=== PATIENT | male | born 1975 | race Two or more races ===

== ENCOUNTER 2017-04-24 13:25 | Emergency (ER) | payer MEDICAID ==
[~2017-04-24] VITALS: Ht 167.6 cm; Wt 60.3 kg
[2017-04-24 14:34] VITALS: BP 114/79
[2017-04-24] MEDS ORDERED: NEOMYCIN-BACITRACIN-POLYM UNITDOSE PKG TOP OINT TOP ONE (15:00)
== END 2017-04-24 15:19 | disposition home or self-care (01) ==
LOC: ER 13:25
DX: S92.424A Nondisplaced fracture of distal phalanx of right great toe, initial encounter for closed fracture (principal); W22.8XXA Striking against or struck by other objects, initial encounter; Y93.89 Activity, other specified; Y99.8 Other external cause status; Y92.89 Other specified places as the place of occurrence of the external cause
CPT/HCPCS: 73630; 99284; L3260